=== PATIENT | female | born 1930 ===

== ENCOUNTER 2020-10-09 20:11 | Emergency (ER) | payer MEDICARE ==
[~2020-10-09] VITALS: Ht 160 cm; Wt 82.0 kg
--- NOTE | 2020-10-09 20:17 | NUR ---
INITIAL PT CONTACT. PT PRESENTS TO ED VIA EMS C/O "NOT FEELING WELL, MAYBE UTI. IT CHIN WHEN I FIRST START TO GO PEE. I HAVE BEEN SHAKING LIKE THIS FOR A FEW DAYS. I ALSO HAVE SOME BELLY PAIN TOO" X4 DAYS. PT SITTING UPRIGHT ON GURNEY, NADN, VSS. PT NOTED TO HAVE MILD TREMORS TO HANDS. PT PROVIDED BLANKET. PLACED ON CONTINUOUS MONITORING, CALL LIGHT AND PERSONAL BELONGINGS WITHIN REACH. AWAITING ERP. FAMILY AT BEDSIDE.
--- NOTE | 2020-10-09 20:38 | NUR ---
ERP AT BEDSIDE
--- NOTE | 2020-10-09 21:30 | NUR ---
STRAIGHT CATH PERFORMED PER ERP ORDER. CLEANSED PER POLICY. PT TOLERATED WELL. NO ADDITIONAL NEEDS AT THIS TIME. CALL LIGHT AND PERSONAL BELONGINGS WITHIN REACH.
[2020-10-09 21:35] LABS: BASOPHILS % (AUTO) 0 % (0-1); EOSINOPHILS % (AUTO) 1 % (1-7); LYMPHOCYTES % (AUTO) 12 % (22-44); MEAN CORPUSCULAR HGB CONC 33.8 g/dL (32.4-35.8); MEAN PLATELET VOLUME 7.8 fL (7.4-10.4); MONOCYTES % (AUTO) 5 % (2-9); NEUTROPHILS % (AUTO) 82 % (42-75); PLATELET COUNT 233 x10^3/uL (130-400); RED BLOOD COUNT 3.12 x10^6/uL (3.82-5.3); RED CELL DISTRIBUTION WIDTH 15.7 % (9.6-15.2)
[2020-10-09 21:42] LABS: ALANINE AMINOTRANSFERASE 14 U/L (12-78); ALBUMIN 3.9 g/dL (3.4-5.0); ANION GAP 12 mmol/L (5-15); CALCIUM 9.1 mg/dL (8.5-10.1); CHLORIDE 107 mmol/L (98-107)
[2020-10-09 21:45] LABS: ALKALINE PHOSPHATASE 31 U/L (45-117); BILIRUBIN,TOTAL 0.3 mg/dL (0.2-1.0); CREATININE 2.08 mg/dL (0.55-1.02); TOTAL PROTEIN 7.5 g/dL (6.4-8.2)
[2020-10-09 21:46] LABS: MICROSCOPIC INDICATED
[2020-10-09] MEDS ORDERED: CEFDINIR 300 MG CAPSULE PO ONE (22:30)
[2020-10-09] MEDS ORDERED: CEFDINIR 300 MG CAPSULE ONE (22:41)
[2020-10-09 22:56] VITALS: BP 113/70
--- NOTE | 2020-10-09 22:58 | NUR ---
Patient given discharge instructions and they have confirmed that they understand the instructions. Patient ambulatory with steady gait, to d/c desk via wheelchair. NAD, all questions answered appropriately, denies additional needs at this time. No personal belongings left in room after discharge.
== END 2020-10-09 23:00 | disposition home or self-care (01) ==
LOC: ED 22:00
DX: N39.0 Urinary tract infection, site not specified (principal); R30.0 Dysuria; N19 Unspecified kidney failure; R11.2 Nausea with vomiting, unspecified; D64.89 Other specified anemias; I10 Essential (primary) hypertension; E11.9 Type 2 diabetes mellitus without complications
CPT/HCPCS: 36415; 80053; 81001; 85025; 87086; 99283